=== PATIENT | female | born 1975 | race Caucasian/White ===

== ENCOUNTER 2023-07-18 08:04 | Emergency (ER) | payer BC, SELFPAY ==
[2023-07-18 08:18] VITALS: BP 144/96
--- NOTE | 2023-07-18 08:41 | ED.GENMED ---
History of Present Illness
General
Chief Complaint: Cold/Flu/URI Symptoms
Time Seen by Provider: 07/18/23 08:28
Travel History
Have you had any contact with someone who has COVID-19?: No
Do you have any symptoms of coronavirus? Fever > 100 degrees, chills, cough, shortness of breath, sore throat, loss of taste or smell, muscle aches, or headache?: Yes
Symptoms:: fever, cough
History of Present Illness
History of Present Illness:
48-year-old otherwise healthy female presents to the emergency department for evaluation of fever, cough, chills, general malaise for the past 2 days. Has not taken any antipyretics today. [place] weak and reportedly syncopized this morning upon
awakening. She does have a history of syncopal episodes. Denies chest pain or dyspnea at this point.
Past History
Past History
ED Past Medical History: None
ED Past Surgical History: None
Social History
Tobacco: Non-smoker
Alcohol: Occasional
Personal:
Living: with family
Employment: Employed (teacher)
Review of Systems
Review of Systems
Allergies reviewed?: Yes
All Other Systems: ROS reviewed and negative except as documented in HPI and ROS
Phy Exam
Physical Exam
Physical Exam:
GEN: Well appearing, NAD, WDWN
HEENT: Oral mucosa moist, no scleral icterus
Cardiac: Significant tachycardia, regular
Lung: No respiratory distress, no tachypnea, lungs clear to auscultation bilaterally
MSK: No gross deformity or injuries
Skin: Good color, no pallor or jaundice, no rashes
Neuro: AO x3, moves all extremities freely
Psych: Calm, cooperative
Course
Orders/Labs/Results
Orders:
Orders
07/18/23 08:21
EKG- Treatment ONCE
07/18/23 08:37
COVID-19 Antigen Urgent
Source: Nasal Swab
Influenza A+B Rapid Molecular Stat
DENISSE Source: Nasal Swab
Specimen Description:
07/18/23 09:05
Acetaminophen [Tylenol] 1,000 mg PO NOW STA
Ibuprofen [Motrin] 600 mg PO NOW STA
Vital Signs
Initial and Last Documented VS:
Initial Vital Signs
Temp Pulse Resp BP Pulse Ox
100.7 F H 147 20 144/96 97
07/18/23 08:18 07/18/23 08:18 07/18/23 08:18 07/18/23 08:18 07/18/23 08:18
Last Documented Vital Signs
Temp Pulse Resp BP Pulse Ox
100.7 F H 112 16 129/82 97
07/18/23 08:18 07/18/23 09:37 07/18/23 09:37 07/18/23 09:00 07/18/23 09:15
MDM/Problems Addressed
MDM/Problems Addressed:
48-year-old female presents with URI symptoms. She is known to be significantly tachycardic however this downtrended in the emergency department and gradually improved with fever control. She looks clinically well and has no increased work of
breathing and normal lung sounds. 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 Discussed pros and cons of antivirals, through shared decision making we decided to not treat with antivirals at this
juncture which I feel is reasonable. Discussed supportive care and return parameters
*Critical Care Note
Total Time (30-74mins, 75-104mins- exclusive of procedures): Not Applicable
ED Attending Note
-
Portions of this chart may have been created with voice recognition software.� Occasional wrong word or��sound alike� substitutions may have occurred due to the inherent limitations of voice recognition software.
Discharge Plan
Departure
Patient Disposition: Home (Routine Discharge)
Date of Disposition: 07/18/23
Time of Disposition: 09:34
Patient with high blood pressure during this ER visit?: No
Discharge Problem:
Influenza A
Instructions: Flu, Adult (DC)
Referrals:
Mer Pimentel MD [Family Provider] -
Stand Alone Forms: Return to Work
Activity Restrictions/Additional Instructions:
In most cases fevers and chills will improve in the next 2 to 3 days. However if your fever lasts longer than 7 days or if you began to feel profoundly worse do not hesitate to return for reevaluation
Interventions
Interventions:
*Risk Screen - Suicide Last Done: 07/18/23 08:39
*General Assessment Last Done: 07/18/23 08:39
*Neglect/Abuse Screening Last Done: 07/18/23 08:39
ED- Fall Risk Assessment Last Done: 07/18/23 09:42
*ED COVID-19 Vaccine History Last Done: 07/18/23 08:39
*Nursing Disposition Last Done: 07/18/23 09:42
ED- Pulmonary Assessment Last Done: 07/18/23 08:39
Discharge Date and Time
Discharge Date/Time: 07/18/23 09:42
[2023-07-18 09:00] VITALS: BP 129/82
[2023-07-18] MEDS: MOTRIN 600 MG PO (09:12)
[2023-07-18] MEDS: TYLENOL 1000 MG PO (09:12)
[2023-07-18 09:16] LABS: COVID-19 Antigen Negative (Negative)
== END 2023-07-18 09:42 | disposition home or self-care (01) ==
LOC: EMR 08:04
PROVIDERS: EMERGENCY PHYSICIAN Emergency Medicine; FAMILY PHYSICIAN Family Medicine
DX: J10.1 Influenza due to other identified influenza virus with other respiratory manifestations (principal)
CPT/HCPCS: 99283; 87502; 87811

== ENCOUNTER 2025-02-16 07:09 | Emergency (ER) | payer OTHER, SELFPAY ==
[2025-02-16 07:14] VITALS: BP 233/121
[2025-02-16 07:23] VITALS: BMI 33.5
[2025-02-16 07:35] LABS: HCG, Urine Qualitative Screen Negative
--- NOTE | 2025-02-16 07:38 | ED.GENMED ---
History of Present Illness
General
Chief Complaint: Vaginal Bleeding
Source: patient
Exam Limitations: none
Time Seen by Provider: 02/16/25 07:23
History of Present Illness
History of Present Illness:
50-year-old female complaining of weeks of intermittent abnormal vaginal bleeding. She had an irregular period in September. Then regular periods. The last 3 weeks have been unusual. Bleeding is less than a menstrual bleeding. She feels fine. She
has no abdominal pain she has no weakness. She has no fever or chills. She saw the new [employer] this week had a negative test in the office and is scheduled for labs and ultrasound but became worried and elected to come to the ER for further
evaluation
Past History
Past History
ED Past Medical History: None
ED Past Surgical History: None
Social History
Tobacco: Non-smoker
Alcohol: Occasional
Personal:
Living: with family
Employment: Employed (teacher)
Review of Systems
Review of Systems
All Other Systems: Not applicable
Constitutional: Denies fever, weight loss or fatigue
ABD/GI: Denies abdominal pain
Phy Exam
Physical Exam
Physical Exam:
GENERAL: Alert and oriented in no apparent distress
CARDIAC: Regular rate and rhythm
LUNGS: No respiratory distress
ABDOMEN: Soft, without focal tenderness or distention
: Very minimal blood in the vaginal vault. No active bleeding. Cervix is normal. No discharge.
NEUROLOGICAL: Alert and oriented , grossly non-focal
SKIN: Warm and dry
PSYCH: Normal and appropriate interaction.
Course
Orders/Labs/Results
Orders:
Orders
02/16/25 07:26
HCG, Urine Qualitative Screen Urgent
Date Specimen was Collected: 02/16/25
Time Specimen was Collected: 07:24
02/16/25 07:37
0.9% Sodium Chloride 1000 ml [Nss] 1,000 ml IV BOLUS
Test Result ONCE
US Pelvis Only (non-obstetric) Urgent
Comment:
Reason For Exam: Abnormal bleeding
02/16/25 07:45
Basic Metabolic Panel Urgent
Complete Blood Count/With Diff Urgent
HCG, Serum Qualitative Screen Urgent
Abnormal Lab Results
02/16/25
07:45
MCH 31.4 H pg
(27.0-31.0)
Glucose 109 H mg/dl
(70-99)
02/16/25 07:45
02/16/25 07:45
Vital Signs
Initial and Last Documented VS:
Initial Vital Signs
Temp Pulse Resp BP Pulse Ox
98.4 F 119 18 233/121 98
02/16/25 07:14 02/16/25 07:14 02/16/25 07:14 02/16/25 07:14 02/16/25 07:14
Last Documented Vital Signs
Temp Pulse Resp BP Pulse Ox
98.4 F 80 16 155/96 100
02/16/25 07:14 02/16/25 09:54 02/16/25 09:54 02/16/25 09:54 02/16/25 08:07
MDM/Problems Addressed
Differential Diagnosis Includes:
Abnormal vaginal bleeding. Differential would include a anatomical [employer] issue versus hormonal. Highly doubt . Was checked in the office but will recheck today. Clinically stable and nontoxic. Not describing severe or life-threatening
bleeding either by history, her physical findings or [employer] exam.
*Radiology
Radiology exam reviewed: radiology read reviewed (Bilateral ovarian cysts. Small uterine fibroid)
*Pulse Oximetry
SaO2: 98
Oxygen Mode of Delivery: Room air
Patient hypoxic: no
*Critical Care Note
Total Time (30-74mins, 75-104mins- exclusive of procedures): Not Applicable
Data Reviewed
Review of Other/Old Records Reveals: Labs and Records
Update Note
Update Note:
Medically stable for discharge. Copy of ultrasound given to patient. Will give a couple of referrals for excellent [employer] physicians
ED Attending Note
-
Portions of this chart may have been created with voice recognition software.� Occasional wrong word or��sound alike� substitutions may have occurred due to the inherent limitations of voice recognition software.
Discharge Plan
Departure
Patient Disposition: Home (Routine Discharge)
Date of Disposition: 02/16/25
Time of Disposition: 10:13
Patient with high blood pressure during this ER visit?: Yes
Discharge Problem:
Abnormal vaginal bleeding, Uterine fibroid, Ovarian cysts bilaterally
Instructions: Uterine Fibroids (DC), Ovarian cyst - ED (DC), Bleeding between periods, BLOOD PRESSURE
Referrals:
Lita Arguello MD [Active, Gynecology] - Next open appointment
Medina Pro MD [Active, Gynecology] - Next open appointment
Activity Restrictions/Additional Instructions:
Follow-up closely with your primary physician
Arrange close [employer] follow-up. I gave you to above that could possibly see you in the near future. If they are unable, as we discussed stay with your current [employer] until you can make changes
Interventions
Interventions:
*Risk Screen - Suicide Last Done: 02/16/25 07:14
*General Assessment Last Done: 02/16/25 07:14
*Neglect/Abuse Screening Last Done: 02/16/25 07:14
*ED- Fall Risk Assessment Last Done: 02/16/25 07:24
*ED COVID-19 Vaccine History Last Done: 02/16/25 07:24
ED-Female Genitourinary Assessment Last Done: 02/16/25 07:28
Discharge Date and Time
Print Language: LITHUANIAN
[2025-02-16] MEDS: NSS 1000 IV (07:46)
[2025-02-16 07:47] VITALS: BP 181/98
[2025-02-16 08:07] VITALS: BP 156/107
[2025-02-16 08:07] LABS: Hematocrit 38.4 % (37.0-47.0); Hemoglobin 13.3 g/dL (12.0-16.0); Mean Corp Hgb Conc. 34.6 g/dL (33.0-37.0); Mean Corpuscular Volume 90.6 fL (81.0-99.0); Nucleated Red Blood Cells % 0 %; Platelet Count 187 10^3/uL (130-400); Red Cell Dist. Width 13.0 % (11.5-14.5)
[2025-02-16 08:18] LABS: Blood Urea Nitrogen 9 mg/dl (7-17); Calcium 9.7 mg/dl (8.4-10.2); Carbon Dioxide 26 mmol/L (22-30); Chloride 107 mmol/L (98-107); Estimated Creatinine Clearance 109 ml/min; Glucose 109 mg/dl (70-99); Potassium 3.9 mmol/L (3.5-5.1); Sodium 141 mmol/L (135-145); eGFR > 60.00
[2025-02-16 08:19] LABS: HCG, Serum Qualitative Screen Negative
[2025-02-16 09:54] VITALS: BP 155/96
== END 2025-02-16 10:24 | disposition home or self-care (01) ==
LOC: EMR 07:09
PROVIDERS: EMERGENCY PHYSICIAN Emergency Medicine; FAMILY PHYSICIAN Family Medicine
DX: N93.9 Abnormal uterine and vaginal bleeding, unspecified (principal); D25.1 Intramural leiomyoma of uterus; N83.201 Unspecified ovarian cyst, right side; N83.202 Unspecified ovarian cyst, left side
CPT/HCPCS: 96360; 99284; 76856; 80048; 81025; 84703; 85025